=== PATIENT | female | born 1995 | race Two or more races ===

== ENCOUNTER 2017-01-17 13:39 | Emergency (ER) | payer SELFPAY ==
--- NOTE | ~2017-01-17 | ER ---
[facility] AGE[facility] 21 Y [address] ROOM: [place] [address] LOCATION: [facility] ADMIT DATE: 01/17/2017 ER/Outpatient Report DISCHARGE DATE: FAMILY PHYSICIAN: PHYSICIAN, NO ATTENDING PHYSICIAN: Sim Ghosh Time of Arrival: 1341 hours. Time of Exam: 1341 hours. CHIEF COMPLAINT: Vaginal bleeding. HISTORY OF PRESENT ILLNESS: The patient states that about 10 o'clock this morning she began having spotting that she noted just before showering. The patient states that the blood is there when she wipes. She has not had to wear a pad. Denies having been sexually active prior to start of the bleeding. She states she has just some generalized pelvic discomfort and does have some generalized pain with urination. Last menstrual period was 08/31/2016, due date is end of May. She is a 3, para 0, AB 2. She reports she is nauseated, but states that is normal. She has been nauseated throughout the whole . ALLERGIES: NO KNOWN ALLERGIES. CURRENT MEDICATIONS: Include vitamins. PAST MEDICAL HISTORY: Benign. PAST SURGERIES: Negative. SOCIAL HISTORY: She is new to the [facility], just moved here within the last couple of weeks, moved up here from [place]. Was receiving care in [place], but has not started any care here in [place] at this time. PHYSICAL EXAMINATION: VITAL SIGNS: Weight 78.7 kg. Blood pressure is 123/68, pulse of 89, respirations 20, temperature of 98.4 tympanic, O2 saturation was 98% on room air. heart tones are regular, in the 160s. GENERAL: She is awake, alert, and oriented x4. SKIN: [place], warm, and dry. PAT[facility] AGE: 21 Y [address] ROOM: [place] [address] LOCATION: [facility] ADMIT DATE: 01/17/2017 ER/Outpatient Report DISCHARGE DATE: FAMILY PHYSICIAN: PHYSICIAN, NO ATTENDING PHYSICIAN: Sim Ghosh LUNGS: Respirations are even and nonlabored. Lung sounds are clear throughout. HEART : Regular rate and rhythm. ABDOMEN: Soft and nondistended. Bowel sounds are present. LABORATORY DATA: Lab work was drawn. CBC is within normal limits. Cath UA is within normal limits. Chem panel: Sodium 141, potassium 3.9, and chloride 109. Her serum HCG was 9825. Ultrasound was completed shows a single intrauterine with a due date of 06/08/2017, puts her at 19 weeks 5 days, heart rate was 158. Placenta looks normal. Cervix is closed. Vaginal exam was completed, no discharge noted, cervix is closed. IMPRESSION: 1. Vaginal spotting with cramping. 2. Possible miscarriage. PLAN: The patient is to be discharged home. Rest. Fluids. Continue her vitamins. She is not to have any sexual intercourse. Nothing in the vagina. No tampons, no douching, nothing of that nature. She verbalized understanding. She was given names of various providers here in town. She is to call and make an appointment to be seen within the next 2-3 days. She verbalized understanding. MEGHAN TORRE APRN FOR [facility]/olayinka /[id number] d: 01/20/17 232 t: 02/04/17 0813, OUTPATIENT REPORT
[2017-01-17 14:01] LABS: BASOPHIL % 0.2 %; EOSINOPHIL % 0.5 %; HEMATOCRIT 37.7 % (33.0-46.0); HEMOGLOBIN 11.8 g/dL (11.0-15.0); IMMATURE GRANULOCYTE % 0.2 %; LYMPHOCYTE # 1.8 K/uL (0.8-4.0); LYMPHOCYTE % 22.2 %; MCH 24.7 pg (27.0-34.0); MCHC 31.3 gm/dL (32.0-36.5); MCV 78.9 fl (83.0-98.0); MONOCYTE # 0.5 K/uL (0.0-1.0); MONOCYTE % 5.6 %; MPV 10.2 fl (9.4-12.4); NEUTROPHIL # (ANC) 5.9 K/uL (1.8-7.8); NEUTROPHIL % 71.3 %; NRBC % 0 /100WBC (0-0.00); PLATELET COUNT 298 K/uL (150-450); RBC 4.78 M/uL (3.50-5.00); RDW-CV 13.9 % (11.9-14.6); WBC 8.3 K/uL (4.0-11.0)
[2017-01-17 14:20] LABS: BILIRUBIN URINE NEGATIVE (NEGATIVE); BLOOD URINE NEGATIVE /UL (NEGATIVE); COLOR URINE YELLOW (YELLOW); GLUCOSE URINE NEGATIVE (NEGATIVE); KETONE URINE NEGATIVE (NEGATIVE); LEUKOCYTES URINE NEGATIVE /UL (NEGATIVE); NITRITE URINE NEGATIVE (NEGATIVE); PROTEIN URINE NEGATIVE (NEGATIVE); SPEC GRAVITY URINE 1.015 (1.003-1.035); TURBIDITY URINE 1+ (CLEAR); UROBILINOGEN URINE NORMAL (NORMAL)
[2017-01-17 14:24] LABS: ALBUMIN 3.1 gm/dL (3.5-5.0); ALK PHOS 76 IU/L (33-138); ALT 28 IU/L (12-78); ANION GAP 12.5 (10.0-19.0); AST 12 IU/L (10-40); BLOOD UREA NITROGEN 4 mg/dL (6-24); CALCIUM 8.5 mg/dL (8.5-10.5); CHLORIDE 109 mMol/L (96-110); CO2 23 mMol/L (22-32); CREATININE 0.5 mg/dL (0.5-1.1); ESTIMATED GFR (MDRD EQUATION) > 60; POTASSIUM 3.5 mMol/L (3.7-5.1); SODIUM 141 mMol/L (135-145); TOTAL BILIRUBIN 0.2 mg/dL (0.0-1.5); TOTAL PROTEIN 6.8 g/dL (6.0-8.4)
[2017-01-17 14:30] LABS: WBC URINE 0-2 #/HPF (NEGATIVE)
[2017-01-17 14:31] LABS: AMORPHOUS URINE 3+ (NEGATIVE); BACTERIA URINE FEW (NEGATIVE); MUCUS URINE 1+ (NEGATIVE); RBC URINE RARE #/HPF (NEGATIVE)
== END 2017-01-17 15:48 | disposition disaster alternative care site (69) ==
LOC: GMED 13:39
PROVIDERS: Emergency Medicine
DX: O26.852 Spotting complicating pregnancy, second trimester (principal); Z3A.19 19 weeks gestation of pregnancy